=== PATIENT | female | born 1965 | race Caucasian/White ===

== ENCOUNTER 2022-06-22 15:15 | Outpatient (RCR) | payer BC, SELFPAY ==
--- NOTE | 2022-04-26 16:11 | PT.OPEX ---
Please sign PT evaluation completed on 04/26/22. Thank you. PT [place] [facility] Eval PT [facility] Outpatient Eval Start: 04/26/22 12:34 Freq: Status: Active Protocol: Document 04/26/22 12:34 TLQ (Rec: 04/26/22 16:02 TLQ [id number]) E-signed By Rachael Desir DPT Physical Therapy Outpatient Evaluation Insurance Information Recert Due Date 06/25/22 Insurance Name Medicaid,Blue [employer] Medical Diagnosis Adhesive capsulitis of right shoulder Treating Diagnosis Pain in R shoulder (M25.511) Stiffness of shoulder (M25.61) Muscle weakness (M62.81) Referring MD Gates Subjective Subjective Patient states she's had R shoulder pain for the past 2 months. Initially just felt tight but not has a hard time moving it when she first wakes up, loosens up throughout the morning but still doesn't get all her motion. Takes ibuprofen to help with the pain. Reports the pain in her shoulder wakes her up about 5- 6x per night, likes to sleep on her back. She has tried different positions with pillows for sleeping but hasn' t seemed to help. States she dreads going to sleep because of how intense her pain is when she wakes up. Describes pain as an intense ache, gets more intense throughout her range of motion. Has difficulty reaching up to get a coffee cup, anything about shoulder height is difficult. Saw Dr. Gates, took some x- rays and thought patient had frozen shoulder, patient states joint lags. Had a R shoulder repair in 2009. 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 Therapy Limitations/Systems Review Not Limited Objective Range of Motion Shoulder: flexion - L 164, R 130 painful throughout ROM but more with controlled extension abduction - L 170, R 145 painful and slow active motion past 80 degrees internal rotation - L 81, R 60 painful with with active ER to return to neutral external rotation - L 68, R 45 painful Strength Shoulder: flexion - L 5/5, R 4/5 painful abduction - L 5/5, R 3+/5 painful adduction - L 5/5, R 5/5 internal rotation - L 5/5, R 3 +/5 painful external rotation - L 5/5, R 4 /5 elevation - 5/5 Elbow: flexion - L 5/5, R 4/5 painful extension - L 5/5, R 5/5 Palpation TTP - R shoulder: proximal bicep muscle belly, proximal bicep tendon, pectorals, suprspinatus, infraspinatus, levator scapula Scapular - normal mobility GH mobility - hypomobile posterior glide, positive patient response Posture forward head/rounded shoulders L shoulder slightly elevated compared to R Other/Pertinent Objective Real-Enrike - negative on L, positive on R for pain sulcus sign on R Functional Test Performed & Score SPADI pain score (04/26/22) - 30/50 ( 60% impaired) disability score (04/26/22) - 45/80 (56% impaired) total score (04/26/22) - 75/130 FRANKLIN - 13 points Assessment Assessment/Impression Patient is a 56 year old female who presents to physical therapy with R shoulder pain of 2 months duration. Over the past few months she has experienced decreased range of motion and increased pain in her R shoulder. Pain is insidious in nature and limits the patient 's quality of sleep, ability to perform self cares such as washing her hair, and her ability for reach for dishes placed in a cupboard. Upon examination she was found to be most limited in active R shoulder flexion, abduction, and external rotation. She also presented with weakness upon manual muscle testing and has a positive sulcus sign. She was tender with palpation of R shoulder RC and pectoral muscles. Due to severity of patients symptoms and the impact they are having on her ability to participate in daily cares and chores, she will benefit from skilled PT intervention to reduce pain, improve shoulder AROM and increase shoulder strength. Primary Functional Limitations R shoulder pain, decreased sleep quality, pain with overhead reaching, pain with washing hair, decreased R shoulder AROM, muscle weakness Plan of Care Rehabilitation Potential Good Physical Therapy Goals goals created on 04/26/22: STG - Patient will R shoulder AROM by 10 degrees for shoulder flexion, abduction, and external rotation to be able to wash her hair with decreased difficulty in 5 weeks. STG - Patient will decrease subjective report of pain from 8/10 to 5/10 to decrease sleep disruption to <4x/night in 5 weeks. LTG - Patient will improve R shoulder AROM to be within functional limits for improved mobility in self-cares and reaching in 10 weeks. 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 LTG - Patient will adhere to HEP to manage symptoms IND at home in 10 weeks. Treatment Plan/Direct Interventions Electrical Stimulation,Joint Mobilization,Manual Therapy, Neuromuscular Re-ed, Therapeutic Activities, Therapeutic Exercises Frequency/Duration 1x/week for 8-10 weeks Patient Will Be Discharged From Therapy Completion of LTG(s),Skills Plateau,Independent w/HEP, Independently Progressing Evaluation Billing Untimed Code Treatment Minutes 35 Complexity Low Certification Information Initial Certification Date 04/26/22 Ending Certification Date 06/25/22 Provider Signature Shows Agreement With POC & Medical Necessity Physician Comment/Change Comment or Changes Physician NPI Number #
== END 2022-08-12 10:04 | disposition home or self-care (01) ==
PROVIDERS: PCP Physician Assistant Medical; Visit Provider Orthopaedic Surgery Sports Medicine
DX: M75.01 Adhesive capsulitis of right shoulder (principal); Z51.89 Encounter for other specified aftercare
CPT/HCPCS: 97110; 97140; 97161

== ENCOUNTER 2022-07-21 19:24 | Emergency (ER) | payer BC, SELFPAY ==
[2022-07-21 19:58] VITALS: BP 146/79; PULSE 59; RESP 20; TEMP 36.3; O2SAT 94; BMI 34.9
--- NOTE | 2022-07-21 20:15 | ED.GENADULT ---
HPI - General Adult General Time Seen by Provider: 20:20 Date Seen: 07/21/22 Chief complaint: Cough Stated complaint: Lung Pain,Severe Cough Time Seen by Provider: 07/21/22 20:07 Source: patient, family, RN notes reviewed and old records reviewed Mode of arrival: ambulatory Limitations: no limitations History of Present Illness HPI narrative: 56-year-old female who comes in today with her partner with cough and burning in her lungs. This been going on for couple of days. Multiple family members at home sick with similar symptoms. She denies fever chills, does have body aches and headache. Sinus congestion and sore throat as well. Has been taking NyQuil and ibuprofen for this. No orthopnea, no lower extremity swelling, no chest pain, no nausea, vomiting, or diarrhea. Related Data Home Medications Medication Instructions Recorded Confirmed duloxetine 30 mg capsule,delayed 90 mg PO DAILY 02/21/22 03/29/22 release estradiol 1 mg tablet 1 mg PO DAILY 02/21/22 03/29/22 levothyroxine 150 mcg tablet 150 mcg PO DAILY 02/21/22 03/29/22 lithium carbonate 300 mg tablet 300 mg PO BID 02/21/22 03/29/22 omeprazole 20 mg capsule,delayed 20 mg PO QDAY 02/21/22 03/29/22 release progesterone micronized 100 mg 100 mg PO DAILY 02/21/22 03/29/22 capsule propranolol 10 mg tablet 20 mg PO BID 02/21/22 03/29/22 trazodone 50 mg tablet 50 mg PO .Bedtime 02/21/22 03/29/22 Previous Rx's Medication Instructions Recorded nicotine (polacrilex) 2 mg buccal 2 mg buccal Q4H PRN nicotine 02/21/22 lozenge (Nicorette) cravings #108 ea nicotine 14 mg/24 hr daily 1 patch transdermal Q24H #30 ea 02/21/22 transdermal patch buprenorphine 8 mg-naloxone 2 mg 2 tab sublingual DAILY #56 tabs 07/11/22 sublingual tablet cefpodoxime 200 mg tablet 200 mg PO BID #14 tabs 07/21/22 Allergies Allergy/AdvReac Type Severity Reaction Status Date / Time latex Allergy Unknown Rash Verified 03/29/22 15:02 peanuts Allergy Severe filberts-throat Uncoded 03/29/22 15:02 itchy/scratchy Penicillin Allergy Unknown Rash Uncoded 03/29/22 15:02 Review of Systems Status of ROS: Reports: 10 or more systems reviewed and unremarkable except as noted in History and below [facility] Medical History (Updated 07/21/22 @ 21:07 by Eric Lance MD) Anxiety Arthritis Neck pain Sleep apnea Thyroid disease Surgical History History of arthroscopy of left knee History of arthroscopy of right shoulder History of total left knee replacement (~2011) Hx of cholecystectomy Social History (Updated 03/29/22 @ 15:01 by Dinorah Coto CMA) Smoking Status: Current every day smoker Do you use any of these nicotine containing products: None Second hand tobacco smoke exposure: No How often do you have a drink containing alcohol: never AUDIT-C Alcohol total score: 0 Non-prescribed substance use: denies use service: No Exam Narrative: Exam Narrative: General: Well-developed and well-nourished, no acute distress Head: Atraumatic and normocephalic Eyes: Pupils are equal reactive, extraocular motions intact, conjunctiva clear ENT: External nose and ears are normal, posterior pharynx without erythema or exudate Neck: No midline cervical tenderness, full spontaneous range of motion the neck, trachea midline, no adenopathy Heart: Regular rate and rhythm no murmurs or thrills Lungs: Clear to auscultation bilaterally without wheezes or crackles Abdomen: Soft, nontender, nondistended with active bowel sounds Musculoskeletal: No tenderness, deformity, or edema Neurologic: Awake, alert, and oriented x3, no gross focal neurologic deficits, cranial nerves intact as tested Psych: Mood and affect are appropriate Skin: No rashes Const: Vital Signs, click to edit/add: Vital Signs - 24 hr 07/21/22 19:58 Temperature 97.4 F L Pulse Rate [Pulse Oximeter] 59 L Respiratory Rate 20 Blood Pressure [Ri ght Upper Arm] 146/79 H Pulse Oximetry 94 Oxygen Delivery Me thod Room Air Course Course Hospital Course: Patient seen examined, prior records are reviewed. Differential diagnosis includes but not limited to upper respiratory infection, influenza, COVID, pneumonia, COPD, asthma, heart failure. Patient presents with cough, sinus congestion, sore throat body aches, and headache. Multiple family members with similar symptoms, infectious etiology such as upper respiratory infection, COVID, or influenza most likely and nasal swabs are ordered. Pneumonia possible although lungs are clear and patient has a constellation of other upper respiratory symptoms as well, chest x-ray is ordered. DuoNeb ordered and will continue to monitor patient in the department. No chest pain to suggest acute coronary syndrome, no lower extremity swelling and lungs are clear so pulmonary edema or congestive heart failure unlikely. Reevaluation(s) Reevaluation #1: Chest x-ray demonstrated right lower lobe infiltrate consistent with pneumonia. Patient will be started on cefpodoxime due to penicillin allergy and Azithromycin and plan to discharge. Time: 21:03 Vital Signs Vital signs: Initial Vital Signs Temperature 97.4 F L 07/21/22 19:58 Temperature Source Temporal Artery Scan 07/21/22 19:58 Pulse Rate 59 L 07/21/22 19:58 Pulse Rhythm 07/21/22 19:58 Respiratory Rate 20 07/21/22 19:58 Blood Pressure 146/79 H 07/21/22 19:58 Blood Pressure Mean 101 07/21/22 19:58 Pulse Oximetry 94 07/21/22 19:58 Oxygen Delivery Method 07/21/22 19:58 Vital Signs Temperature 97.4 F L 07/21/22 19:58 Pulse Rate 59 L 07/21/22 19:58 Respiratory Rate 20 07/21/22 19:58 Blood Pressure 146/79 H 07/21/22 19:58 Pulse Oximetry 94 07/21/22 19:58 Oxygen Delivery Method 07/21/22 19:58 Temperature 97.4 F L 07/21/22 19:58 Pulse Rate 59 L 07/21/22 19:58 Respiratory Rate 20 07/21/22 19:58 Blood Pressure 146/79 H 07/21/22 19:58 Pulse Oximetry 94 07/21/22 19:58 Oxygen Delivery Method 07/21/22 19:58 Medical Decision Making Medical Records Medical records reviewed: Yes I reviewed the patient's medical records Lab Data Lab results reviewed: Yes I reviewed the patient's lab results Labs: Lab Results 07/21/22 Range/Units 20:24 SARS-CoV-2 (PCR) Negative SARS-CoV-2 (Negative) Influenza Type A (PCR) Negative PCR FLU A (Negative) Influenza Type B (PCR) Negative PCR FLU B (Negative) RSV (PCR) POSITIVE PCR RSV A (Negative) Imaging Data Chest x-ray: Attestation: I have reviewed the pertinent imaging results. My impression: Question right lower lobe infiltrate Discharge Plan Discharge Clinical Impression: Community acquired pneumonia Patient Disposition: Home, Self-Care Condition: Stable Instructions: Community Acquired Pneumonia (DC) Additional Instructions: Tylenol and ibuprofen for fever and body aches. Take antibiotics as prescribed. Make sure regarding plenty of fluids and plenty of rest. Started azithromycin tonight and cefpodoxime tomorrow. Prescriptions: New cefpodoxime 200 mg tablet 200 mg PO BID Qty: 14 0RF Rx Instructions: must administer with a meal/food No Action duloxetine 30 mg capsule,delayed release(DR/EC) 90 mg PO DAILY progesterone micronized 100 mg capsule 100 mg PO DAILY lithium carbonate 300 mg tablet 300 mg PO BID omeprazole 20 mg capsule,delayed release(DR/EC) 20 mg PO QDAY levothyroxine 150 mcg tablet 150 mcg PO DAILY estradiol 1 mg tablet 1 mg PO DAILY propranolol 10 mg tablet 20 mg PO BID trazodone 50 mg tablet 50 mg PO .Bedtime nicotine 14 mg/24 hr patch 24 hour 1 patch transdermal Q24H Qty: 30 2RF nicotine (polacrilex) [Nicorette] 2 mg lozenge 2 mg buccal Q4H PRN (Reason: nicotine cravings) Qty: 108 2RF buprenorphine-naloxone 8-2 mg tablet, sublingual 2 tab sublingual DAILY Qty: 56 1RF Follow Up/Referrals: Stephy Stover PA-C [Primary Care Provider] - Stand Alone Forms: [employer] Info Instructions
--- NOTE | 2022-07-21 20:19 | CRLHL7_ITS ---
For Patients: As a result of the Century Cures Act, medical imaging exams and procedure reports are released immediately into your electronic medical record. You may view this report before your referring provider. If you have questions, please contact your health care provider. HISTORY: Cough. TECHNIQUE: Portable frontal view the chest. COMPARISON: Chest x-ray 03/25/2019. FINDINGS: Hazy opacity in the lower right lung with prominent adjacent interstitium. No consolidation on the left. No pleural effusion or pneumothorax. Pulmonary vasculature and cardiomediastinal silhouette are unremarkable. IMPRESSION: Hazy opacity lower right lung, favor pneumonia. Imaging follow-up is recommended to document resolution. Dictated by Polo Hargrove MD @ 07/21/2022 8:57:47 PM (Electronically Signed)
[2022-07-21] MEDS: IPRAT-ALBUT 0.5-2.5 MG/3 ML NEB 1 NEB IH (20:43)
[2022-07-21 21:05] LABS: PCR FLU A Negative PCR FLU A (Negative); PCR FLU B Negative PCR FLU B (Negative); PCR RSV POSITIVE PCR RSV (Negative)
[2022-07-21 21:06] LABS: SARS PCR* Negative SARS-CoV-2 (Negative)
[2022-07-21 21:19] VITALS: BP 132/69; PULSE 62; RESP 18; TEMP 36.6
--- NOTE | 2022-07-22 12:46 | ED.NURSE ---
patient called and wants a different antibiotic due to needing a prior authorization. Changed the medication to Ceftin 500mg orally BID x 7 days called into [facility].
== END 2022-07-21 21:20 | disposition home or self-care (01) ==
PROVIDERS: Emergency Provider Family Medicine; PCP Physician Assistant Medical
DX: J18.9 Pneumonia, unspecified organism (principal)
CPT/HCPCS: 71045; 87502; 87634; 87635; 94640; 99284

== ENCOUNTER 2022-11-17 19:09 | Emergency (ER) | payer BC, SELFPAY ==
[2022-11-17 19:16] VITALS: BP 157/90; PULSE 62; RESP 16; TEMP 36.1; O2SAT 99
--- NOTE | 2022-11-17 20:23 | ED.GENADULT ---
HPI - General Adult General Date Seen: 11/17/22 Chief complaint: Weakness Stated complaint: tremors, fatigue (LI raised a month ago) Time Seen by Provider: 11/17/22 19:11 Source: patient and family Mode of arrival: ambulatory Limitations: no limitations History of Present Illness HPI narrative: Patient is a very nice 56-year-old female who takes lithium was recently increased 4 weeks ago, from 600 mg once daily to 900 mg once daily, in the last 3 weeks she has noted that she has been very fatigued, a little bit ataxic, and heads increase tremor in her hands bilaterally, she denies any vomiting, any diarrhea, but has had a little bit a nausea associated with this. Denies any falls or injury, fevers chills or sweats, abdominal pain, cough sore throat, or rashes. None of her other medications have been increased, but she was placed on Atarax 50 mg once daily when she started the lithium increased dosage. She had been on the lithium before this for approximately 4 months. She is accompanied here by friend. She called her psychiatrist Dr. Wesley at [facility], she was directed to the emergency room to check for lithium toxicity. She does have a history of hypothyroidism Treatments prior to arrival: none Related Data Home Medications Medication Instructions Recorded Confirmed duloxetine 30 mg capsule,delayed 90 mg PO DAILY 02/21/22 10/31/22 release estradiol 1 mg tablet 1 mg PO DAILY 02/21/22 10/31/22 lithium carbonate 300 mg tablet 300 mg PO BID 02/21/22 10/31/22 omeprazole 20 mg capsule,delayed 20 mg PO QDAY 02/21/22 10/31/22 release progesterone micronized 100 mg 100 mg PO DAILY 02/21/22 10/31/22 capsule propranolol 10 mg tablet 20 mg PO BID 02/21/22 10/31/22 trazodone 50 mg tablet 50 mg PO .Bedtime 02/21/22 10/31/22 levothyroxine 175 mcg tablet 175 mcg PO QDAY 09/05/22 10/31/22 hydroxyzine HCl 25 mg tablet 25 mg PO BID PRN 10/31/22 10/31/22 Previous Rx's Medication Instructions Recorded nicotine (polacrilex) 2 mg buccal 2 mg buccal Q4H PRN nicotine 02/21/22 lozenge (Nicorette) cravings #108 ea nicotine 14 mg/24 hr daily 1 patch transdermal Q24H #30 ea 02/21/22 transdermal patch cefpodoxime 200 mg tablet 200 mg PO BID #14 tabs 07/21/22 buprenorphine 8 mg-naloxone 2 mg 2 tab sublingual DAILY #56 tabs 10/31/22 sublingual tablet Allergies Allergy/AdvReac Type Severity Reaction Status Date / Time latex Allergy Unknown Rash Verified 10/31/22 09:06 peanuts Allergy Severe filberts-throat Uncoded 10/31/22 09:06 itchy/scratchy Penicillin Allergy Unknown Rash Uncoded 10/31/22 09:06 Review of Systems Status of ROS: Reports: 10 or more systems reviewed and unremarkable except as noted in History and below [facility] Medical History (Updated 11/17/22 @ 23:01 by Felix Edmond MD) Anxiety ?F41.9 - Anxiety disorder, unspecified (ICD-10) Arthritis ?M19.90 - Unspecified osteoarthritis, unspecified site (ICD-10) Neck pain ?M54.2 - Cervicalgia (ICD-10) Sleep apnea ?G47.30 - Sleep apnea, unspecified (ICD-10) Thyroid disease ?E07.9 - Disorder of thyroid, unspecified (ICD-10) Surgical History History of arthroscopy of left knee History of arthroscopy of right shoulder History of total left knee replacement (~2011) Hx of cholecystectomy Social History (Updated 03/29/22 @ 15:01 by Dinorah Coto ~ [facility], [facility]) Smoking Status: Former smoker Do you use any of these nicotine containing products: None Second hand tobacco smoke exposure: No How often do you have a drink containing alcohol: never AUDIT-C Alcohol total score: 0 Non-prescribed substance use: denies use service: No Exam Narrative: Exam Narrative: On examination she is speaking to me normally, little bit slow to respond but otherwise normal, normal speech, pupils are equal round reactive to light she has 2 beats of nystagmus horizontally bilaterally, her TMs are normal oropharynx is normal, with normal hydration status her neck is supple, her thyroid is normal midline not and tender and not enlarged. There is no lymphadenopathy anterior posterior chains, no meningismus, and cranial nerves 3-12 are otherwise normal, chest is good air entry bilaterally with no wheezing crackles noted heart sounds are normal, skin reveals no petechiae or rashes, abdomen is soft and obese there is no guarding no organomegaly bowel sounds are normal, peripheral pulses are all normal, she has a very fine tremor noted of her hands bilaterally, I do not see 1 of her feet. Finger-nose testing was normal for me in the room bilaterally, she is able to walk normal, and tandem walking, was normal with no significant ataxic gait. Const: Vital Signs, click to edit/add: Vital Signs - 24 hr 11/17/22 19:16 11/17/22 21:47 Temperature 97.0 F L 97.0 F L Pulse Rate [Left P ulse Oximeter] 62 67 Respiratory Rate 16 16 Blood Pressure [Ri ght Upper Arm] 157/90 H 148/68 H Pulse Oximetry 99 96 Oxygen Delivery Me thod Room Air Room Air Documenting provider has reviewed patient's vital signs: yes Course Course Hospital Course: Discussed with her that we will do lithium level this has to be sent out to [facility] which turnaround about 2 hours we will start an IV I will check her labs including kidney function, basic metabolic profile TSH also. Do an EKG. We will give her fluids well are waiting, Reevaluation(s) Reevaluation #1: [place] I return level at 1.0 which is in the normal range this is reassuring and I think we can discharge the patient home with follow-up with psychiatry and primary care, I do not have any answers for her tonight but I suspect that may be due to her medications. Time: 23:04 Vital Signs Vital signs: Initial Vital Signs Temperature 97.0 F L 11/17/22 19:16 Temperature Source Temporal Artery Scan 11/17/22 19:16 Pulse Rate 62 11/17/22 19:16 Pulse Rhythm Regular 11/17/22 19:16 Respiratory Rate 16 11/17/22 19:16 Blood Pressure 157/90 H 11/17/22 19:16 Blood Pressure Mean 112 11/17/22 19:16 Blood Pressure Position Sitting 11/17/22 19:16 Pulse Oximetry 99 11/17/22 19:16 Oxygen Delivery Method Room Air 11/17/22 19:16 Vital Signs Temperature 97.0 F L 11/17/22 19:16 Pulse Rate 62 11/17/22 19:16 Respiratory Rate 16 11/17/22 19:16 Blood Pressure 157/90 H 11/17/22 19:16 Pulse Oximetry 99 11/17/22 19:16 Oxygen Delivery Method Room Air 11/17/22 19:16 Temperature 97.0 F L 11/17/22 21:47 Pulse Rate 67 11/17/22 21:47 Respiratory Rate 16 11/17/22 21:47 Blood Pressure 148/68 H 11/17/22 21:47 Pulse Oximetry 96 11/17/22 21:47 Oxygen Delivery Method Room Air 11/17/22 21:47 Medical Decision Making MDM Narrative Medical decision making narrative: Life-threatening differential diagnosis considered include stroke, coronary artery disease, pneumonia, and heart failure. Other differential diagnosis include but are not limited to electrolyte imbalances, anemia, medication reactions, and urinary tract infection Lab Data Lab results reviewed: Yes I reviewed the patient's lab results Labs: Lab Results 11/17/22 Range/Units 20:00 WBC 8.04 (4.50-11.00) K/uL RBC 3.63 L (4.00-5.20) m/uL Hgb 11.0 L (12.0-16.0) gm/dL Hct 33.0 (33.0-51.0) % MCV 91 (80-100) fL MCH 30 (26-34) pg MCHC 33 (32-36) gm/dL RDW Coeff of [place] 11.4 L (11.5-15.5) % Plt Count 318 (140-440) K/uL Neut % (Auto) 52.5 (42.0-72.0) % Lymph % (Auto) 33.1 (20-44) % [place] % (Auto) 9.8 (0.0-11.0) % Eos % (Auto) 4.2 (0.0-7.0) % Baso % (Auto) 0.2 (0.0-3.0) % Neut # (Auto) 4.21 (1.7-7.0) K/uL Lymph # (Auto) 2.66 (0.90-2.90) K/uL [place] # (Auto) 0.80 (0.00-0.90) K/UL Eos # (Auto) 0.34 (0.00-0.50) K/uL Baso # (Auto) 0.02 (0.00-0.30) K/uL Sodium 136 (135-149) mmol/L Potassium 4.3 (3.6-5.1) mmol/L Chloride 105 (96-114) mmol/L Carbon Dioxide 27 (20-32) mmol/L BUN 14 (7-30) mg/dL Creatinine 0.7 (0.5-1.5) mg/dL Estimated GFR 101 ml/min Glucose 95 (60-115) mg/dL Calcium 9.1 (8.4-10.6) mg/dL C-Reactive Protein 0.5 (0.5-1.0) mg/dL TSH 2.490 (0.270-4.20) uIU/mL [place] I Cancelled SARS-CoV-2 (PCR) Negative SARS-CoV-2 (Negative) Influenza Type A (PCR) Negative PCR FLU A (Negative) Influenza Type B (PCR) Negative PCR FLU B (Negative) RSV (PCR) Negative PCR RSV (Negative) ECG Data Attestation: I personally reviewed and interpreted this ECG as follows: Prior ECG tracings: available for review Interpretation: EKG shows mild sinus bradycardia with ventricular to 58, QT is slightly prolonged at 4:58 a.m., MO is normal a and QRS are normal, compared to October of 2018 T-waves are less pronounced in the current EKG, otherwise the same. Discharge Plan Discharge Clinical Impression: Drug side effects Patient Disposition: Home w/ Parent or Adult Condition: Stable Instructions: Adverse Drug Reaction (ED) Additional Instructions: Home rest follow-up with primary care and Psychiatry, do not see an emergent ER condition here tonight, I am happy that her lithium level was not elevated, and the remainder of her tests were all within normal range. Prescriptions: No Action duloxetine 30 mg capsule,delayed release(DR/EC) 90 mg PO DAILY progesterone micronized 100 mg capsule 100 mg PO DAILY lithium carbonate 300 mg tablet 300 mg PO BID omeprazole 20 mg capsule,delayed release(DR/EC) 20 mg PO QDAY estradiol 1 mg tablet 1 mg PO DAILY propranolol 10 mg tablet 20 mg PO BID trazodone 50 mg tablet 50 mg PO .Bedtime nicotine 14 mg/24 hr patch 24 hour 1 patch transdermal Q24H Qty: 30 2RF nicotine (polacrilex) [Nicorette] 2 mg lozenge 2 mg buccal Q4H PRN (Reason: nicotine cravings) Qty: 108 2RF levothyroxine 175 mcg tablet 175 mcg PO QDAY hydroxyzine HCl 25 mg tablet 25 mg PO BID PRN buprenorphine-naloxone 8-2 mg tablet, sublingual 2 tab sublingual DAILY Qty: 56 1RF cefpodoxime 200 mg tablet 200 mg PO BID Qty: 14 0RF Rx Instructions: must administer with a meal/food Follow Up/Referrals: Stephy Stover PASupriyaC [Primary Care Provider] - Stand Alone [facility]
[2022-11-17 20:27] LABS: Basophils Absolute Auto 0.02 K/uL (0.00-0.30); Basophils Percent Auto 0.2 % (0.0-3.0); Eosinophils Absolute Auto 0.34 K/uL (0.00-0.50); Eosinophils Percent Auto 4.2 % (0.0-7.0); Immature Granulocytes Abs Auto 0.02 K/uL (0.00-0.30); Immature Granulocytes Pct Auto 0.2 %; Lymphocytes Absolute Auto 2.66 K/uL (0.90-2.90); Lymphocytes Percent Auto 33.1 % (20-44); Mean Corpuscular HGB Conc 33 gm/dL (32-36); Mean Corpuscular Hemoglobin 30 pg (26-34); Mean Corpuscular Volume 91 fL (80-100); Monocytes Percent Auto 9.8 % (0.0-11.0); Neutrophils Absolute Auto 4.21 K/uL (1.7-7.0); Neutrophils Percent Auto 52.5 % (42.0-72.0); Platelet Count* 318 K/uL (140-440); RDW Coefficient of Variation % 11.4 % (11.5-15.5); Red Blood Count 3.63 m/uL (4.00-5.20); White Blood Count* 8.04 K/uL (4.50-11.00)
[2022-11-17] MEDS: 0.9 % SODIUM CHLORIDE 1000 ml 1,000 ML IV ×2 (20:27→21:53)
[2022-11-17 20:36] LABS: Chloride* 105 mmol/L (96-114); Potassium* 4.3 mmol/L (3.6-5.1); Sodium* 136 mmol/L (135-149)
[2022-11-17 20:39] LABS: Creatinine* 0.7 mg/dL (0.5-1.5); Estimated Glomerular Filt Rate 101 ml/min
[2022-11-17 20:40] LABS: Blood Urea Nitrogen* 14 mg/dL (7-30); Calcium* 9.1 mg/dL (8.4-10.6); Carbon Dioxide* 27 mmol/L (20-32); Glucose* 95 mg/dL (60-115); Slide Review Reflex No
[2022-11-17 20:42] LABS: C Reactive Protein* 0.5 mg/dL (0.5-1.0)
[2022-11-17 20:52] LABS: PCR FLU A Negative PCR FLU A (Negative); PCR FLU B Negative PCR FLU B (Negative); PCR RSV Negative PCR RSV (Negative)
[2022-11-17 20:53] LABS: SARS PCR* Negative SARS-CoV-2 (Negative)
[2022-11-17 21:47] VITALS: BP 148/68; PULSE 67; RESP 16; TEMP 36.1; O2SAT 96
== END 2022-11-17 23:08 | disposition home or self-care (01) ==
PROVIDERS: Emergency Provider Family Medicine; PCP Physician Assistant Medical
DX: R53.83 Other fatigue (principal); T43.595A Adverse effect of other antipsychotics and neuroleptics, initial encounter
CPT/HCPCS: 36415; 80048; 80178; 84443; 85025; 86140; 87631; 93005; 99284; J7030

== ENCOUNTER 2024-12-16 07:12 | Day surgery (SDC) | payer OTHER, SELFPAY ==
[2024-12-16] VITALS (7 sets, daily range): BP systolic 134–160; BP diastolic 69–90; PULSE 54–64; RESP 16; TEMP 36.1–36.6; O2SAT 94–97; BMI 35.2
[2024-12-16] MEDS: LACTATED RINGERS 1000 ML 1,000 ML 100 ML IV (07:20)
[2024-12-16] MEDS: fentaNYL 100 MCG/2 ML inj IVP (08:11)
[2024-12-16] MEDS: SODIUM CHLORIDE 0.9 % (FLUSH) 10 ML SYRINGE IVF (08:11)
[2024-12-16] MEDS: MIDAZOLAM HCL 1 MG/ML inj IVP (08:11)
[2024-12-16] MEDS: CEFAZOLIN 1 GM inj IVP (08:36)
[2024-12-16] MEDS: BUPIVACAINE 0.25% 30 ML INJECTION (08:45)
--- NOTE | 2024-12-16 10:56 | W.ANESCHARGE ---
Anesthesia Charges Start Date/Time Anesthesia Start Date: 12/16/24 Anesthesia Start Time: 08:27 Stop Date/Time Anesthesia Stop Date: 12/16/24 Anesthesia Stop Time: 10:54 Coding CPT Codes CPT Codes: ANESTH LOWER LEG BONE SURG - 37261 ([id number]) P2 - PATIENT W/MILD SYST DISEASE, QZ - BENEFITS DIRECTOR SVC W/O PHARMACIST IN CHARGE BY
--- NOTE | 2024-12-16 10:56 | P.ANES_ITS ---
Anesthesia Charges Start Date/Time Anesthesia Start Date: 12/16/24 Anesthesia Start Time: 08:27 Stop Date/Time Anesthesia Stop Date: 12/16/24 Anesthesia Stop Time: 10:54 Coding CPT Codes CPT Codes: ANESTH LOWER LEG BONE SURG - 10189 ([id number]) P2 - PATIENT W/MILD SYST DISEASE, QZ - METAL WINDOW SCREEN ASSEMBLER SVC W/O CHEMIST ASSISTANT BY
--- NOTE | 2024-12-16 11:04 | W.PODPROC_ITS ---
Date of Procedure: 12/16/24 Surgeon: Adam Morse DPM Pre-op Diagnosis: 1. Hallux valgus and bunion right 2. Overlapping 2nd toe right 3. Metatarsalgia 2nd right 4. Hammertoe 2nd right 5. Tailor's bunion right Post-op Diagnosis: 1. Hallux valgus and bunion right 2. Overlapping 2nd toe right 3. Metatarsalgia 2nd right 4. Hammertoe 2nd right 5. Tailor's bunion right Type of Procedure: 1. First MPJ fusion right 2. Second metatarsal osteotomy right 3. Second digit hammertoe correction right 4. Tailor's bunion correction by osteotomy right Indications: Patient had longstanding pain to forefoot deformity. She has elected surgical intervention. I reviewed the procedure, recovery, expectation potential complications. These include but are not limited to: Poor wound healing, infection, under correction, over correction, malunion, delayed union, nonunion, nerve injury, hardware irritation or failure, deep venous thrombosis, pulmonary embolism, complex regional pain syndrome and possible . She understands risks written consent was obtained. Site marked. She has pain clinic patient has pain plan in place. Procedure Description: Patient was a preoperative popliteal and adductor block by Anesthesia. She was brought the operating room placed in supine position on operating table. IV sedation was initiated and an additional 30 mL of 0.25% Marcaine plain injected into the right foot. She was then prepped and draped in sterile fashion. Standard time-out protocol followed. The right foot was exsanguinated the tourniquet inflated. Linear incisions made over the 1st metatarsophalangeal joint. Incision was carried down through skin subcutaneous tissues. Joint capsule and periosteum reflected away from the metatarsophalangeal joint. Guide pin was placed in the 1st metatarsal head and an 18 mm Reamer was used to remove the cartilage and subchondral bone. Guide pin was removed and placed in the base of the proximal phalanx and corresponding 18 mm Reamer was used to remove the cartilage and subchondral bone. Area was irrigated normal sterile saline. Opposing fusion surfaces were fenestrated with a K-wire. Simulating weight- bearing the hallux was placed in a appropriate position and temporarily pinned with K-wire. 3.0 mm cannulated headless screw was then inserted from distal medial to proximal lateral with excellent compression noted across the fusion site. Dorsal 6 hole plate was then applied with 3.0 mm locking screws x3 placed distally and 2 placed proximally. Additional 3.0 mm nonlocking screw was placed proximal. Fusion site was remodeled with a rotary bur. C-arm confirmed excellent position. Joint capsule was then repaired with 3-0 Vicryl, subcutaneous tissues reapproximated 4-0 Monocryl and skin closed with 4-0 Prolene. Linear incisions made over the 2nd metatarsophalangeal joint extending out over the 2nd toe and PIPJ. Incision was carried down through skin subcutaneous tissues. Transverse incision was made through the extensor tendons at the level of the MPJ. The joint capsule was then released on the dorsal medial and lateral aspect. There was no perceivable plantar plate tear. Sagittal saw was then used to perform a Rebekah osteotomy. Capital fragment was transposed proximal and medial and the fixated with 2.0 mm twist off screws x2. Small amount of dorsal overhang was removed with a rongeur. 2nd toe aligned much better. Transverse incision was made through the extensor tendon and joint capsule at the PIPJ. The medial and lateral collateral ligaments were released. Oscillating saw was used to resect the head of the proximal phalanx and the base of the middle phalanx. 0.045 smooth K-wire was introduced into the base of the middle phalanx driven out through the tip of the toe. Fusion site was held tightly together and the K-wire retrogradely drilled back into the proximal phalanx. C-arm confirmed excellent position. The pin was bent cut and capped. Area was thoroughly irrigated normal sterile saline. Redundant extensor tendon was excised and tendon repaired with 4-0 Vicryl. With the 2nd toe held in a slightly plantar and lateral the plantar lateral joint capsule was tightened down with 3-0 Vicryl. This held the 2nd proximal phalangeal base and better alignment. Subcutaneous tissues reapproximated with 4-0 Monocryl and skin closed with 4-0 Prolene. Linear incision made over the dorsal lateral aspect of the 5th metatarsal distal shaft and head. The incision was carried down through skin subcutaneous tissues. Linear capsular incision was made these tissues reflected away from the head of the 5th metatarsal and its distal shaft. Sagittal saw used to resect the prominent bony spurring off the 5th metatarsal head. Osteotomy guide pin placed in the 5th metatarsal head. Long plantar arm osteotomy then performed. Guide pin removed and the capital fragment transposed medially. Once optimal correction was achieved osteotomy was fixated with two 2.4 mm cannulated screws. C-arm confirmed position and correction. Fifth metatarsal head remodeled with a rotary bur. Wound was thoroughly irrigated normal sterile saline. Joint capsule was repaired with 4-0 Vicryl. Subcutaneous tissues reapproximated 4-0 Monocryl skin closed with 4-0 Prolene. Sterile dressing was then applied. Tourniquet was released normal capillary fill time returned all digits. She was placed in a well-padded cam boot. She was transferred from OR to PACU vital signs stable and vascular status intact. She is given both verbal and written postoperative instructions. She is heel weight-bearing in the cam boot. She is given oxycodone for pain. She will follow-up in 3 days. Anesthesia: MAC, regional and local Hemostasis: ankle Estimated blood loss (mL): 2 Provider Operated C-arm: C-arm fluoroscopy operated by Adam Morse DPM for right foot surgical case. Nineteen C-arm spot images were obtained. Fluoroscopy time was 0.13. Total does 0.040mGy. Implants: Arthrex 6 hole 1st MPJ fusion plate, 3.0 mm locking screws times 5, 3.0 mm nonlocking screw x1, 3.0 mm cannulated headless screw x1, 2.0 mm twist off screws x2, 0.045 smooth K-wire x1, 2.0 mm cannulated screws x2. Specimens: none sent Disposition: same day
--- NOTE | 2024-12-16 11:19 | W.PM.NB ---
Nerve Block Nerve Block Time Seen by Provider: 08:19 Date Seen: 12/16/24 Type of block requested by surgeon for post-operative analgesia: popliteal Side: right Time out performed: Yes Verification of patient name: Yes Verification of date of : Yes Site marking: site marked Name of person performing procedure: Hugh Continuous monitoring Was continuous monitoring of O2 sat, B/P, cardiac cath lab radiology technologist, recorded every 15 minutes?: Yes Procedure Checklist: sterile prep, needles and gloves Ultrasound guided. Images saved: Yes Medications given in 5ml increments after negative aspiration: Marcaine %: 0.25 mL: 7 and Exparel mL: 8 Needle gauge: 22 Patient tolerated procedure well: Yes Additional comments: Needle noted adjacent to nerve Block Charges Block Charge (with Pro Fee): Sciatic Nerve Use of Ultrasound Machine for Block: Yes- US Guidance/pain block
--- NOTE | 2024-12-16 11:21 | W.PM.NB ---
Nerve Block Nerve Block Time Seen by Provider: 08:19 Date Seen: 12/16/24 Type of block requested by surgeon for post-operative analgesia: adductor canal Side: right Time out performed: Yes Verification of patient name: Yes Verification of date of : Yes Site marking: site marked Name of person performing procedure: Hugh Continuous monitoring Was continuous monitoring of O2 sat, B/P, corporate development manager, recorded every 15 minutes?: Yes Procedure Checklist: sterile prep, needles and gloves Ultrasound guided. Images saved: Yes Medications given in 5ml increments after negative aspiration: Marcaine %: 0.25 mL: 13 Needle gauge: 20 and Exparel mL: 2 Needle gauge: 22 Patient tolerated procedure well: Yes Block Charges Block Charge (with Pro Fee): Femoral Nerve Use of Ultrasound Machine for Block: Yes- US Guidance/pain block
== END 2024-12-16 12:15 | disposition home or self-care (01) ==
LOC: OR 07:15
PROVIDERS: PCP Physician Assistant Medical; Visit Provider Podiatrist
PROC: (CPT 28740; principal; 2024-12-16 08:30)
DX: M20.11 Hallux valgus (acquired), right foot (principal); M21.621 Bunionette of right foot; M20.41 Other hammer toe(s) (acquired), right foot; M20.5X1 Other deformities of toe(s) (acquired), right foot; M77.41 Metatarsalgia, right foot; G89.18 Other acute postprocedural pain
CPT/HCPCS: 28750; 28285; 28308; 01480; 64445; 64447; 73620; 76000; 76942; C1713; J0665; J0666; J0690; J2250; J2704; J3010; J3490; J7120

== ENCOUNTER 2025-07-19 12:49 | Emergency (ER) | payer OTHER, SELFPAY ==
[2025-07-19] VITALS (12 sets, daily range): BP systolic 182–195; BP diastolic 90–107; PULSE 51–65; RESP 10–18; TEMP 36.4; O2SAT 94–98; BMI 36.8
--- OUTSIDE RECORDS SUMMARY | 2025-07-19 12:52 | XMS_ITS | Clinical Summary ---
Author Organization [facility] Address [address] [place] [address] Care Team Providers Care Terrestrial Ecologist Name Role Phone Stephy Stover Primary Care Provider Sheela Damon ASBESTOS WORKER HELPER Unavailable [phone] Allergies Active Allergy Reactions Criticality Noted Date Comments Amoxicillin-Pot Clavulanate Hives 01/29/20 19 Latex Itching 02/04/2014 Mold Extracts Other - Describe In Comment Field 01/28/2014 Sneezing Medications acetaminophen (TYLENOL EXTRA STRGTH) 500 mg tablet Take 1,000 mg by mouth every 6 hours if needed. Max acetaminophen dose: 4000mg in 24 hrs. Active empty container miscIndications: Anxiety,Depressi on with anxiety,KINGS (generalized anxiety disorder),PTSD (post-traumatic stress disorder) As directed. Medication lock box with multi dosing function for up to 5-6 times/day of medications. 1 Each 07/18/20 17 Active buprenorphine-na loxone, 8 mg-2 mg, (SUBOXONE) 8-[address] 2 tablets under the tongue 2 times daily. 1 04/09/20 21 Active fluticasone (50 mcg per actuation) nasal solution (FLONASE)Indicat ions:Post-nasal drip SHAKE LIQUID AND USE 2 SPRAYS IN EACH NOSTRIL EVERY DAY 48 g 08/28/19 24 Active estradioL 1 mg tabletIndication s:Menopausal symptoms,Hot flashes TAKE 1 TABLET(1 MG) BY MOUTH EVERY DAY 90 Tablet 3 11/26/19 25 Active omeprazole 20 mg Delayed-Release capsuleIndicatio ns:Chronic GERD Take 1 Capsule (20 mg) by mouth two times daily before meals. Use 2nd dose if needed. 180 Capsule 3 11/26/19 25 Active progesterone micronized 100 mg capsuleIndicatio ns:Menopausal symptoms,Hot flashes This product contains peanut oil. Please verify patient allergies.TAKE 1 CAPSULE(100 MG) BY MOUTH AT BEDTIME 90 Capsule 3 11/26/19 25 Active sennosides (Senna) 8.6 mg tabletIndication s:Other constipation Take 2 Tablets (17.2 mg) by mouth two times daily. 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 Take in addition to 88 mcg for total of 188 mcg/day. 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 Take in addition to 100 mcg tablet for total of 188 mcg daily 90 Tablet 3 03/03/20 25 Active busPIRone (BUSPAR) 30 mg tabletIndication s:KINGS (generalized anxiety disorder) Take 1 tablet (30 mg) two to three times daily for anxiety. 270 Tablet 1 06/27/20 25 Active DULoxetine (CYMBALTA) 30 mg Delayed-release capsuleIndicatio ns:KINGS (generalized anxiety disorder),Recurr ent major depressive disorder, in full remission Take 1 capsule by mouth at bedtime. 90 Capsule 1 06/27/20 25 Active DULoxetine (CYMBALTA) 60 mg Delayed-release capsuleIndicatio ns:KINGS (generalized anxiety disorder),Recurr ent major depressive disorder, in full remission Take 1 capsule by mouth daily in the morning. 90 Capsule 1 06/27/20 25 Active hydrOXYzine HCL (ATARAX) 25 mg tabletIndication s:KINGS (generalized anxiety disorder) 25-100 mg every 8 hours as needed for anxiety 60 Tablet 2 06/27/20 25 Active lithium carbonate (LITHONATE) 300 mg capsuleIndicatio ns:Recurrent major depressive disorder, in full remission Take 2 Capsules (600 mg) by mouth at bedtime. 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 60 Tablet 11/26/19 25 025 Discontin ued(*Med complete/ Regimen complete/ Level of care change) polyethylene glycol-electroly te 236-22.74-6.74 -5.86 gram suspensionIndica tions:Encounter for screening colonoscopy Drink 2 liters (half the bottle) the day before colonoscopy and 2 liters (remaining prep) 6 hours prior to colonoscopy appointment. 4000 mL 11/30/19 025 Discontin ued(*Med complete/ Regimen complete/ Level of care change) busPIRone 30 mg tabletIndication s:KINGS (generalized anxiety disorder) Take 1 tablet (30 mg) two to three times daily for anxiety. 270 Tablet 1 12/25/19 025 Discontin ued(Reord er (E-cancel not sent)) DULoxetine 30 mg Delayed-release capsuleIndicatio ns:KINGS (generalized anxiety disorder),Major depressive disorder, recurrent severe without psychotic features (HC) Take 1 capsule by mouth at bedtime. 90 Capsule 1 12/25/19 025 Discontin ued(Reord er (E-cancel not sent)) DULoxetine 60 mg Delayed-release capsuleIndicatio ns:KINGS (generalized anxiety disorder),Major depressive disorder, recurrent severe without psychotic features (HC) Take 1 capsule by mouth daily in the morning. 90 Capsule 1 12/25/19 25 025 Discontin ued(Reord er (E-cancel not sent)) hydrOXYzine HCL 25 mg tabletIndication s:KINGS (generalized anxiety disorder) 25-100 mg every 8 hours as needed for anxiety 60 Tablet 2 12/25/19 25 025 Discontin ued(Reord er (E-cancel not sent)) lithium carbonate 300 mg capsuleIndicatio ns:Major depressive disorder, recurrent severe without psychotic features (HC) Take 2 Capsules (600 mg) by mouth at bedtime. 270 Capsule 1 12/25/19 25 025 Discontin ued(Reord er (E-cancel not sent)) traZODone 100 mg tabletIndication s:Major depressive disorder, recurrent severe without psychotic features (HC),Psychophysi ological insomnia TAKE 1 TABLET BY MOUTH AT BEDTIME 90 Tablet 1 12/25/19 25 025 Discontin ued(Reord er (E-cancel not sent)) Active Problems Problem Noted Date Diagnosed Date Colon polyp 02/03/2025 Overview (02/03/2025): Colonoscopy 01/2025 SSA, repeat in 5 years Pap smear for cervical cancer screening 12/05/19 24 Overview (12/05/2023): 11/2023 NIL/ HPV negative Plan: Pap/ HPV due 11/2028 Severe recurrent major depre ssion without psychotic features 02/06/2018 Controlled substance agreement signed 09/14/2017 Overview (09/14/2017): Signed 09/12/2017 Dr Mariella Gipson Psychiatry Chronic neck pain 07/03/2017 Constipation 07/03/2017 Routine adult health maintenance 03/06/2015 Overview (03/06/2015): Colonoscopy 02/2015 normal repeat in 10 years Cervical herniated disc 04/25/2014 KINGS (generalized anxiety disorder) 04/24/2014 Issue of repeat prescriptions 04/08/2014 S/P endometrial ablation 2013 Hypothyroid 04/19/2013 Tobacco use 03/25/2013 Migraines 02/25/2013 Resolved Problems Problem Noted Date Diagnosed Date Resolved Date Thyroid activity decreased 02/16/2015 1 09/02/2016 Cervical radiculopathy at C7 04/25/2014 07/03/2017 Cervical disc disease 08/01/20132016 Encounters Date Type Department Care Team Description 07/17/2025 Telephone [facility] [address] [place] [address] Stephy Stover PA Appointment Request (REQUEST) 07/17/2025 Nurse Triage [facility] [address] [place] [address] Stephy Stover PA Leg Swelling 06/27/2025 7:45 AM CREDIT COLLECTIONS MANAGER Telemedicine [facility] [address] [place] [address] Mariella Gipson MD Telehealth; Medication Management; Follow Up 06/26/2025 Travel 06/13/2025 7:30 AM CDT Orders Only [facility] [address] [place] [address] Lab, [facility] 06/13/2025 Travel from Last 3 Months Immunizations Immunization Administration Dates Next Due Tdap 02/11/2014 Zoster (Shingrix-RZV, recombinant) 11/21/2023 Family History Medical History Relation Name Comments Cancer-breast Maternal Aunt Diabetes Mother controlled by d iet and exercise Relation Name Status Comments Father alcoholism lead to suicide Maternal Aunt Mother Alive Social History Tobacco Use Types Packs/Day Years Used Date Smoking Tobacco: Former Cigarettes 0.3 29.7 0 11/06/1992 - 07/21/2022 Smokeless Tobacco: Never Tobacco Cessation:Counseling Given: Yes Comments:one pack a week average Alcohol Use Standard Drinks/Week Comments Yes 0 (1 standard drink = 0.6 oz pur e alcohol) few times a month PHQ-2 Answer Date Recorded PHQ-2 TOTAL SCORE 1 06/26/2025 Social Connections Answer Date Recorded Do you often feel lonely or isolated from those around you? 0 11/25/2024 Alcohol Use Answer Date Recorded How often do you have a drink containing alcohol ? 2 03/02/2023 Average Number of Drinks Not on file 023 Frequency of Binge Drinking Not on file 02/12 Financial Resource Strain Answer Date R ecorded Difficulty of Paying Living Expenses 3 11/25/2024 Difficulty of Paying Living Expenses Not on file 11/25/2024 Food Insecurity Answer Date Recorded Do you worry your food will run out before you are able to buy more? 1 11/25/2024 Transportation Needs Answer Date Record ed Does lack of transportation keep you from medica l appointments? 1 11/25/2024 Does lack of transportation keep you from work, meetings or getting things that you need? 1 11/25/2024 Housing Stability Answer Date Recorded What is your housing situation today? 1 11/25/2024 Utilities Answer Date Recorded Do you have trouble paying f or utilities (for example, heat, electricity, water, phone)? 1 11/25/2024 Comments No Sex and Gender Information Value Date Recorded Sex Assigned at Not on file Legal Sex Female 3:01 PM CREDIT COLLECTIONS MANAGER Gender Identity Not on file Sexual Orientation Not on file Last Filed Vital Signs Vital Sign Reading Time Taken Comments Blood Pressure 135/88 01/22/2025 8:32 AM CDT Pulse 100 01/22/2025 8:32 AM CDT Temperature 36.7 C (98.1 F) 02/21/2023 10:22 AM CDT Respiratory Rate 16 01/11/2019 8:03 PM CDT Oxygen Saturation 97% 01/22/2025 8:32 AM CDT Inhaled Oxygen Concentration - - Weight 95.7 kg (211 lb) 01/15/2025 2:24 PM CDT Height 166 cm (5' 5.35) 01/08/2025 9:14 AM CDT Body Mass Index 34.73 01/08/2025 9:14 AM CDT Plan of Treatment Upcoming Encounters Date Type Department Care Team (Late st Contact Info) Description 07/21/2025 9:05 AM CREDIT COLLECTIONS MANAGER Office Visit [facility] [address] [place] [address] Maddie Borrero MD [address] [place] [address] 12/26/2025 7:45 AM CDT Telemedicine [facility] [address] [place] [address] Mariella Gipson MD [address] [place] [address] Health Maintenance Due Date Last Done Comments HIV for age 15-65 12/11/1979 Pneumococcal series for age 50+ (1 of 1 - PCV) 2014 RSV vaccine for adults or (1 - Risk 50-74 years 1-dose series) 2014 Zoster (shingles) series for age 50+ (2 of 2) 01/16/2024 11/21/2023 Tetanus booster 02/12/2024 02/11/2014 COVID-19 vaccine series (3 - season) 2025 01/28/2021, 12/29/2020 Influenza Vaccine (#1) 2025 Mammogram for age 45-75 11/28/2025 11/29/19 25, 11/21/2023, 05/09/2022, Additional history exists BMI (ht and wt on same day) for age 18+ 01/08/2026 01/08/2025, 11/25/2024, 11/21/2023, Additional history exists Depression screening for age 12+ 06/26/2026 06/26/2025, 12/24/2024, 07/30/2024, Additional history exists Pap test for age 21-65 11/20/2028 , 11/21/2023, 11/16/2018, Additional history exists Lipids for age 45-75 11/21/2029 11/21/2024, 11/21/2023, 04/27/2022, Additional history exists Colonoscopy through age 75 01/29/203001/29, 03/06/2015, 03/06/2015 Hepatitis C screening for age 18-79 Completed 06/24/2016 Hepatitis B series for 19+ Aged Out N o longer eligible based on patient's age to complete this topic Procedures Procedure Name Priority Date/Time Associated Diagnosis Comments TSH WITH REFLEX Routine 06/13/2025 7:37 AM CDT Encounter for lithium monitoring BASIC METABOLIC PANEL Routine 06/13/2025 7:37 AM CDT Encounter for lithium monitoring LITHIUM Routine 06/13/2025 7:37 AM CDT Encounter for lithium monitoring SCAN-COLONOSCOPY 01/29/2025 12:0 0 AM CDT XR MAMMO BILAT SCREENING Routine 11/28/2024 2:36 PM CDT Visit for screening mammogram LIPID PANEL W REFLEX MEASURED LDL Routine 11/21/2024 2:41 PM CDT Screening cholesterol level COLORING MACHINE OPERATOR THIN PREP PAP SCREEN IMAGED Routine 11/21/2023 8:47 AM CDT Screening for cervical cancer ANTI HCV Routine 06/24/2016 9:41 AM CREDIT COLLECTIONS MANAGER Need for hepatitis C screening test from Last 3 Months or Most Recently Relevant to Health Maintenance Results * TSH WITH REFLEX (06/13/2025 7:37 AM CDT) TSH W/REFLEX TO FT4 2.88 0.40 - 4.50 mIU/L 06/14/2025 5:23 AM CDT [facility] Blood BLOOD SPECIMEN / Unknown [facility] / Unknown 06/13/2025 7:37 AM CDT 06/13/2025 7:37 AM CDT us Mariella Gipson MD CHEMISTRY Final Result Performing Organization Address City/[facility]/ZIP Co de Phone Number [facility] [address] [address], * LITHIUM (06/13/2025 7:37 AM CDT) LITHIUM 0.8 0.6 - 1.2 mmol/L 06/14/2025 10:05 AM CDT [facility] Blood BLOOD SPECIMEN / Unknown [facility] / Unknown 06/13/2025 7:37 AM CDT 06/13/2025 7:37 AM CDT us Mariella Gipson MD CHEMISTRY Final Result [facility] [address] [address], [place] [phone] * (ABNORMAL) BASIC METABOLIC PANEL (06/13/2025 7:37 AM CDT) SODIUM 137 135 - 146 mmol/L 06/14/2025 5:03 AM CDT [facility] POTASSIUM 4.1 3.5 - 5.3 mmol/L 06/14/2025 5:03 AM CDT [facility] CARBON DIOXIDE 27 20 - 32 mmol/L 06/14/2025 5:03 AM CDT [facility] GLUCOSE 119(H) 65 - 99 mg/dL 06/14/2025 5:03 AM CDT [facility] Comment: Fasting reference interval For someone without known diabetes, a glucose value between 100 and 125 mg/dL is consistent with prediabetes and should be confirmed with a follow-up test. CALCIUM 9.3 8.6 - 10.4 mg/dL 06/14/2025 5:03 AM CDT [facility] CREATININE 0.91 0.50 - 1.05 mg/dL 06/14/2025 5:03 AM CDT [facility] BUN/CREATININE RATIO SEE NOTE: 6 - 22 (calc) 06/14/2025 5:03 AM CDT [facility] Comment: Not Reported: BUN and Creatinine are within reference range. EGFR 72 > OR = 60 mL/min/1. 73m2 06/14/2025 5:03 AM CDT [facility] UREA NITROGEN (BUN) 13 7 - 25 mg/dL 06/14/2025 5:03 AM CDT [facility] ELECTROLYTE BALANCE 6(L) 7 - 17 mmol/L (calc) 06/14/2025 5:03 AM CDT [facility] CHLORIDE 104 98 - 110 mmol/L 06/14/2025 5:03 AM CDT [facility] Blood BLOOD SPECIMEN / Unknown [facility] / Unknown 06/13/2025 7:37 AM CDT 06/13/2025 7:37 AM CDT Mariella Gipson MD CHEMISTRY Final Result [facility] [address] [place] [address], * SCAN-COLONOSCOPY (01/29/2025 12:00 AM CDT) us Scanner OTHER Final Result * XR MAMMO BILAT SCREENING (11/28/2024 2:36 PM CDT) Anatomical Region Laterality Modality BREASTS, Breast Left, Breast Right Bilateral Mammography Impressions 11/29/2024 7:50 AM CDT There is no radiographic evidence for malignancy. Recommend annual mammograms. MAMMOGRAM ASSESSMENT: ACR 1 Negative PATIENTS: You will also receive a letter with your examination results in an easy to read format. If you have questions about your results, please contact your referring provider. Narrative 11/29/2024 7:50 AM CDT For Patients: As a result of the Century Cures Act, medical imaging exams and procedure reports are released immediately into your electronic medical record. You may view this report before your referring provider. If you have questions, please contact your health care provider. XR MAMMO BILAT SCREENING [[id number]] CLINICAL HISTORY: This is an asymptomatic 58 y.o. patient. INDICATION FOR EXAM: Mammogram Screening. TECHNIQUE: CC and MLO views were obtained. This study was evaluated with the assistance of Computer-Aided Detection. COMPARISON FILM: Yes 11/21/23 [facility] 05/09/22 [employer] FINDINGS: There are scattered areas of fibroglandular density. There are no dominant masses, suspicious micro calcifications or areas of architectural distortion. us Stephy ALVARADO MAMMO Final R esult * (ABNORMAL) LIPID PANEL W REFLEX MEASURED LDL (11/21/2024 2:41 PM CDT) CHOLESTEROL, TOTAL 216(H) <200 mg/dL [facility] HDL CHOLESTEROL 93 > OR = 50 mg/dL [facility] TRIGLYCERIDES 221(H) <150 mg/dL [facility] Comment: If a non-fasting specimen was collected, consider repeat triglyceride testing on a fasting specimen if clinically indicated. Jono et al. J. of Clin. Lipidol. 2015;9:129-169. LDL-CHOLESTEROL 92 mg/dL (calc) [facility] Comment: Reference range: <100 Desirable range <100 mg/dL for primary prevention; <70 mg/dL for patients with CHD or diabetic patients with > or = 2 CHD risk factors. LDL-C is now calculated using the Matt calculation, which is a validated novel method providing better accuracy than the Friedewald equation in the estimation of LDL-C. Vidal PADILLA et al. ROZINA. 2013;310(19): 6151-4545 (http://education.KustomNote/faq/NDK546) CHOL/HDLC RATIO 2.3 <5.0 (calc) [facility] NON HDL CHOLESTEROL 123 <130 mg/dL (calc) [facility] Comment: For patients with diabetes plus 1 major ASCVD risk factor, treating to a non-HDL-C goal of <100 mg/dL (LDL-C of <70 mg/dL) is considered a therapeutic option. Blood BLOOD SPECIMEN / Unknown 11/21/2024 2:41 PM CDT 11/21/2024 2:42 PM CDT Stephy ALVARADO CHEMISTRY Final R esult [facility] [address] [place] [address], [facility] [address] [place] [address] * COLORING MACHINE OPERATOR THIN PREP PAP SCREEN IMAGED (11/21/2023 8:47 AM CDT) Case Report Gynecologic Cytology Report Case: [id number] Authorizing Provider: Stephy Stover PA Collected: 11/21/2023 0847 Ordering Location: [facility] Received: 11/22/2023 0855 Clinic First Screen: En He Rescreen: Julissa Merritt Specimen: COLORING MACHINE OPERATOR ThinPrep Vial Screening, Cervical 12/05/2023 10:45 AM CDT [facility]AL [facility]AT[facility] INTERPRETATION/ RESULT NEGATIVE FOR INTRAEPITHELIAL LESION OR MALIGNANCY (NIL) (none) 12/05/2023 10:45 AM CDT [facility] EN[facility]AL LABORATORY at 1045 CDT SPECIMEN ADEQUACY Satisfactory for evaluation No endocervical component seen 12/05/2023 10:45 AM CDT [facility] ENTRMT LABORATORY HPV REQUEST HPV and PAP 12/05/2023 10:45 AM CDT [facility] Date of LMP unsure 12/05/2023 10:45 AM CDT [facility] EN[facility] LAB[facility] Last Pap Date 11/16/18 12/05/2023 10:45 AM CDT [facility] EN[facility] Last Pap Result NIL 10:45 AM CDT [facility] EN[facility] Abnormal Pap or [place] Bx in last 5 years No 12/05/2023 10:45 AM CDT [facility] Menstrual Status Regular Periods 12/05/2023 10:45 AM CDT [facility] [place] Bx Done Today No 12/05/2023 10:45 AM CDT [facility] Additional Information None given 12/05/2023 10:45 AM CDT [facility] EN[facility] Comment: Cytology is screened at [facility] - [address], [place] [address] and [facility] - [address] [place] [address] and [facility] - [address] [place] [address] [facility] - [address], [place] [address] Automated Review Successful 12/05/2023 10:45 AM CDT [facility] Comment:Specimen processed s uccessfully by automated employment assistant device, ThinPrep Imaging System, [employer] ANCILLARY TESTING COLORING MACHINE OPERATOR HPV Ordered, Please see separate report 12/05/2023 10:[address] [facility] Note The pap test is a screening technique, not a diagnostic procedure. It is used primarily to screen for squamous cancers and precursor lesions. Published studies have shown that it is subject to both false negative and false positive results. The pap test should not be used as the sole means to diagnose or exclude pre-malignant and malignant lesions. 12/05/2023 10:45 AM CDT [facility] LABORAT[facility]-C ENTRAL LABORATORY Other (Cervical) Non-Blood / Unknown 11/21/2023 8:47 AM CDT 11/22/2023 8:55 AM CDT Stephy ALVARADO PATHOLOGY/CYTOLOGY Theodora l Result Performing Organization Address City/[facility]/ZIP Co de Phone Number [facility] [address] [place] [address], [place] * ANTI HCV [65784.2] (06/24/2016 9:41 AM CREDIT COLLECTIONS MANAGER) HEPATITIS C ANTIBODY Non-Reacti ve Non-Reacti ve 06/24/2016 6:08 PM CREDIT COLLECTIONS MANAGER [facility]-[place] TR[facility] LABORATORY Blood BLOOD SPECIMEN / Unknown [facility] / Unknown 06/24/2016 9:41 AM CREDIT COLLECTIONS MANAGER 06/24/2016 9:41 AM CREDIT COLLECTIONS MANAGER Narrative [facility] - 06/24/2016 6:08 PM CREDIT COLLECTIONS MANAGER Antibodies to HCV not detected; does not exclude the possibility of exposure to HCV. Stephy ALVARADO SEND OUTS Final R esult Performing Organization Address City/[facility] Co de Phone Number [facility] [address] [place] [address], from Last 3 Months or Most Recently Relevant to Health Maintenance Insurance [place] [id number] Advance Directives * Full Code (Latest Code Status on File) Date Activated Date Inactivated Comments 10/20/2017 7:30 AM 10/21/2017 2:33 AM * Full Code Date Activated Date Inactivated Comments 10/11/2017 8:25 AM 10/12/2017 2:34 AM * Full Code Date Activated Date Inactivated Comments 10/04/2017 7:46 AM 10/05/2017 2:57 AM * Full Code Date Activated Date Inactivated Comments 09/29/2017 7:41 AM 09/30/2017 4:13 AM * Full Code Date Activated Date Inactivated Comments 09/27/2017 8:07 AM 09/28/2017 3:01 AM Care Teams Terrestrial Ecologist Relationship Specialty Start Date End Date Stephy Stover PA [facility] [address] [place] [address] PCP - General Family Practice 01/19/13 Sheela Damon, [facility] [address] [place] [address] ROSAMARIA Perez [address] [facility] Sql Application Developer 09/05/17
--- OUTSIDE RECORDS SUMMARY | 2025-07-19 12:52 | XMS_ITS | Clinical Summary ---
Author Organization [facility] Address [address] [place] [address]. [place] [address] Care Team Providers Care Paste Mixing Supervisor Name Role Phone Clinic, [facility] Primary Care Provider Allergies Active Allergy Reactions Criticality Noted Date Comments Amoxicillin Rash Low 05/28/2019 Latex Itching 02/04/2014 Molds & Smuts Other (See Comments) 01/28/2014 Sneezing Prednisone 02/11/2014 Other reaction(s): Psychosis Medications omeprazole (PRILOSEC) [address] capsule Take 20 mg by mouth every morning Active diazepam (VALIUM) 5 MG tablet Take 1 tablet (5 mg) by mouth the night before appointment and 2 tablets (10 mg) 1 hour prior to dentist appointment Active DULoxetine (CYMBALTA) 60 MG capsuleIndicatio ns:Severe recurrent major depression without psychotic features (H) Take 1 capsule (60 mg) by mouth daily 30 capsule 9 Active levothyroxine (SYNTHROID/LEVOT HROID) 200 MCG tabletIndication s:Hypothyroidism , unspecified type Take 1 tablet (200 mcg) by mouth daily 30 tablet 9 Active lithium ER (LITHOBID/ESKALI TH CR) 300 MG CR tabletIndication s:Severe recurrent major depression without psychotic features (H) Take 1 tablet (300 mg) by mouth every 12 hours 60 tablet 9 Active OLANZapine zydis (ZYPREXA) 5 MG ODTIndications:S evere recurrent major depression without psychotic features (H) Take 1 tablet (5 mg) by mouth once a week 10 tablet 9 Active QUEtiapine (SEROQUEL) 200 MG tabletIndication s:Severe recurrent major depression without psychotic features (H) Take 1 tablet (200 mg) by mouth At Bedtime 30 tablet 9 Active traZODone (DESYREL) 50 MG tabletIndication s:Severe recurrent major depression without psychotic features (H) Take 1 tablet (50 mg) by mouth nightly as needed for sleep 30 tablet 9 Active Active Problems Problem Noted Date Diagnosed Date Severe recurrent major depre ssion without psychotic features 06/01/2019 Depression 05/28/2019 Family History Medical History Relation Comments Alcoholism Brother Hypertension Father Diabetes Mother Hypertension Mother Relation Status Comments Brother Father Mother Social History Tobacco Use Types Packs/Day Years Used Date Smoking Tobacco: Every Day Cigarettes Smokeless Tobacco: Never Alcohol Use Standard Drinks/Week Comments Not Currently 0 (1 standard drink = 0.6 oz pur e alcohol) Adolescent Education Answer Date Record ed Getting School Help Needed Not on file 05/05 Comments Unknown Sex and Gender Information Value Date Recorded Sex Assigned at Not on file Legal Sex Female 2:06 PM CDT Gender Identity Not on file Sexual Orientation Not on file Last Filed Vital Signs Vital Sign Reading Time Taken Comments Blood Pressure 119/84 06/18/2019 9:23 AM PAINTER DECORATOR Pulse 80 06/18/2019 9:23 AM PAINTER DECORATOR Temperature 37.6 C (99.6 F) 06/18/2019 9:23 AM PAINTER DECORATOR Respiratory Rate 16 06/18/2019 9:23 AM PAINTER DECORATOR Oxygen Saturation 99% 06/18/2019 9:23 AM PAINTER DECORATOR Inhaled Oxygen Concentration - - Weight 89.8 kg (198 lb) 06/18/2019 9:23 AM PAINTER DECORATOR Height 165.1 cm (5' 5) 05/28/2019 7:15 PM CDT Body Mass Index 32.95 05/28/2019 7:15 PM CDT Plan of Treatment Not on file Advance Directives For more information, please contact: [phone] * Full Code (Latest Code Status on File) Date Activated Date Inactivated Comments 05/28/2019 8:32 PM 06/18/2019 4:06 PM Question Answer Comments Code status determined by: Other (please documen t) Care Teams Paste Mixing Supervisor Relationship Specialty Start Date End Date [facility], [place] [address] PCP - General 05/28/19
--- OUTSIDE RECORDS SUMMARY | 2025-07-19 12:52 | XMS_ITS | Clinical Summary ---
Author Organization [facility] Address [address] [address] Care Team Providers Care Rn Recovery Name Role Phone Unavailable Primary Care Provider Unavailabl e Source Comments You are receiving this document as you are listed as the primary care provider,follow-up provider, or the patient has been referred to you for consultation.This is in compliance with the Medicare andMedicaid EHR Incentive Program,which states Providers who transition their patient to another setting of careor provider of care or refers their patient to another provider of care shouldprovide summary care record for each transition of care or referral. [email or web address] Medications levothyroxine (SYNTHROID) 175 MCG tablet Take 175 mcg by mouth. 08/28/2019 Active DULoxetine (CYMBALTA) 60 MG capsule Take 60 mg by mouth daily. 1 08/15/2019 Active lithium carbonate ER (LITHOBID) 300 MG extended release tablet Take 300 mg by mouth. 06/18/2019 Active methocarbamol (ROBAXIN) 500 MG tablet 08/27/2019 Active omeprazole (PRILOSEC) 20 MG capsule TAKE ONE CAPSULE DAILY IN THE MORNING 2 08/15/2019 Active traZODone (DESYREL) 50 MG tablet Take 50-100 mg by mouth at bedtime as needed. for sleep 2 08/15/2019 Active buprenorphine-n aloxone (SUBOXONE) 8-[address] 1 Tablet under tongue. 03/28/2019 Active Social History Tobacco Use Types Packs/Day Years Used Date Smoking Tobacco: Never Assessed Comments Unknown Sex and Gender Information Value Date Recorded Sex Assigned at Not on file Legal Sex Female 9:40 AM SECRETARIAL TEACHER Gender Identity Not on file Sexual Orientation Not on file Last Filed Vital Signs Vital Sign Reading Time Taken Comments Blood Pressure 111/81 09/13/2019 8:25 AM SECRETARIAL TEACHER Pulse 68 09/13/2019 8:25 AM SECRETARIAL TEACHER Temperature - - Respiratory Rate - - Oxygen Saturation - - Inhaled Oxygen Concentration - - Weight 90.7 kg (200 lb) 09/13/2019 8:25 AM SECRETARIAL TEACHER Height 165.1 cm (5' 5) 09/13/2019 8:25 AM SECRETARIAL TEACHER Body Mass Index 33.28 09/13/2019 8:25 AM SECRETARIAL TEACHER Plan of Treatment Health Maintenance Due Date Last Done Comments Cervical Cancer Screening Due 1964 Colon Cancer Screening Plan Due 1964 Hep C Screening (Preventive Services) 1964 Mammogram 1964 HIV Screening (Preventive Services) 1980 Adult Preventive Visit 1982 Cholesterol 2009 Pneumococcal Vaccine 50+ Yrs (1 of 1 - PCV) 2014 Zoster/Shingles Vaccine (1 of 2) 2014 DTaP/Tdap/Td Vaccine (2 - Tdap) 02/12/2024 4 COVID-19 Vaccine (2 - 2024-2 6 season) 2025 12/29/2020 Influenza Vaccine (#1) 2025 RSV Vaccine (1 - 1-dose 75+ series) 12/11/2039 HepA Vaccine Aged Out No longer eligi ble based on patient's age to complete this topic HepB Vaccine Aged Out No longer eligi ble based on patient's age to complete this topic Hib Vaccine Aged Out No longer eligi ble based on patient's age to complete this topic IPV (Polio) Vaccine Aged Out No longe r eligible based on patient's age to complete this topic MCV4 Vaccine Aged Out No longer eligi ble based on patient's age to complete this topic Meningococcal B Vaccine Aged Out No l onger eligible based on patient's age to complete this topic
--- NOTE | 2025-07-19 13:19 | CRLHL7_ITS ---
For Patients: As a result of the Century Cures Act, medical imaging exams and procedure reports are released immediately into your electronic medical record. You may view this report before your referring provider. If you have questions, please contact your health care provider. INDICATION: Shortness of breath TECHNIQUE: Two view chest. FINDINGS: The lungs are clear. The heart, mediastinum and pulmonary vessels are of normal size. There is no evidence of pleural disease. IMPRESSION: Negative chest. Dictated by Amanda Duarte MD @ 07/19/2025 2:06:02 PM (Electronically Signed)
--- NOTE | 2025-07-19 13:23 | ED.SOB ---
HPI - SOB/Dyspnea General Date Seen: 07/19/25 Chief Complaint: Shortness of Breath/Dyspnea Stated Complaint: shortness of breath Time Seen by Provider: 07/19/25 12:51 Source: patient Mode of arrival: ambulatory Limitations: no limitations History of Present Illness HPI Narrative: Patient is a 59-year-old female presenting to the emergency department for shortness of breath. Denies any history of heart disease. Does have a history of hypothyroidism on levothyroxine migraines states for the past week she has been noticing increased swelling of her lower extremities. States she has remained source to keep her legs elevated to help with the swelling. Swelling is usually better in the morning to get worse throughout the day has she is on her feet. States she is short of breath when lying flat some has been sleeping in recliner for the past week. Has never had issues with this before. States she has never had ultrasound of her heart. States swelling right now it is much better than I will typically is but again she states it gets worse throughout the day and she has not been at work today. States she has some mild intermittent chest discomfort but nothing too noticeable she states. Denies any history of blood clots. States he has had recent dental procedures were she was sedated. No history of cancer. Denies hemoptysis. Denies any abdominal pain, lightheadedness, dizziness, weakness, numbness, fevers, chills, diarrhea, constipation, dysuria. No other concerns noted at this time. Related Data Home Medications ?Medication ?Instructions ?Recorded ?Confirmed duloxetine 30 mg capsule,delayed 90 mg PO DAILY 02/21/22 07/19/25 release estradiol 1 mg tablet 1 mg PO DAILY 02/21/22 07/19/25 lithium carbonate 300 mg tablet 300 mg PO BID 02/21/22 07/19/25 omeprazole 20 mg capsule,delayed 20 mg PO BID 02/21/22 07/19/25 release progesterone micronized 100 mg 100 mg PO DAILY 02/21/22 07/19/25 capsule hydroxyzine HCl 25 mg tablet 25 mg PO BID PRN 10/31/22 07/19/25 buspirone 10 mg tablet 30 mg PO BID 06/03/24 07/19/25 levothyroxine 100 mcg tablet mcg PO 07/19/25 levothyroxine 88 mcg tablet mcg PO 07/19/25 sennosides 8.6 mg tablet (senna) 17.2 mg PO BID 07/19/25 07/19/25 trazodone 100 mg tablet 100 mg PO QPM 07/19/25 07/19/25 Previous Rx's ?Medication ?Instructions ?Recorded buprenorphine 8 mg-naloxone 2 mg 2 tab sublingual DAILY #56 tabs 05/05/25 sublingual tablet Allergies Allergy/AdvReac Type Severity Reaction Status Date / Time latex Allergy Unknown Rash Verified 07/19/25 13:08 amoxicillin (From Augmentin) Allergy Hives Verified 07/19/25 13:08 clavulanic acid (From Allergy Hives Verified 07/19/25 13:08 Augmentin) peanuts Allergy Severe filberts-throat Uncoded 01/27/25 09:28 itchy/scratchy Penicillin Allergy Unknown Rash Uncoded 01/27/25 09:28 Review of Systems Status of ROS: Reports: 10 or more systems reviewed and unremarkable except as noted in History and below [facility] Medical History Severe recurrent major depression without psychotic features ?F33.2 - Major depressive disorder, recurrent severe without psychotic features (ICD-10) Controlled substance agreement signed ?Z79.899 - Other penitentiary (current) drug therapy (ICD-10) Abdominal pain ?R10.9 - Unspecified abdominal pain (ICD-10) Chest pain ?R07.9 - Chest pain, unspecified (ICD-10) Constipation ?K59.00 - Constipation, unspecified (ICD-10) Contusion of right hand ?S60.221A - Contusion of right hand, initial encounter (ICD-10) Depression ?F32.A - Depression, unspecified (ICD-10) Opioid use disorder ?F11.90 - Opioid use, unspecified, uncomplicated (ICD-10) Osteoarthritis of right knee ?M17.11 - Unilateral primary osteoarthritis, right knee (ICD-10) Anxiety ?F41.9 - Anxiety disorder, unspecified (ICD-10) Arthritis ?M19.90 - Unspecified osteoarthritis, unspecified site (ICD-10) Sleep apnea ?G47.30 - Sleep apnea, unspecified (ICD-10) Thyroid disease ?E07.9 - Disorder of thyroid, unspecified (ICD-10) Neck pain ?M54.2 - Cervicalgia (ICD-10) Surgical History History of arthroscopy of right shoulder ?Z98.890 - Other specified postprocedural states (ICD-10) History of arthroscopy of left knee ?Z98.890 - Other specified postprocedural states (ICD-10) Hx of cholecystectomy ?Z90.49 - Acquired absence of other specified parts of digestive tract (ICD-10) History of total left knee replacement (~2011) ?Z96.652 - Presence of left artificial knee joint (ICD-10) Social History Smoking Status: Former smoker Do you use any of these nicotine containing products: None Second hand tobacco smoke exposure: No How often do you have a drink containing alcohol: 2-3 times a week How many standard drinks containing alcohol do you have on a typical day: 1 or 2 How often do you have six or more drinks on one occasion: Less than monthly AUDIT-C Alcohol total score: 4 Non-prescribed substance use: denies use Caffeine: Yes (coffee/pop 4/day) Are you using contraception or practicing any form of control: No service: No Exam Narrative: Exam Narrative: Const: Well-nourished, Well-developed, in no distress Eyes: PERRL, no conjunctival injection, and symmetrical lids HENT: Atraumatic external nose and ears. Moist mucous membranes. Neck: Symmetric, trachea midline, No thyromegaly. CVS: RRR, No murmurs or gallops. Peripheral pulses 2+ and equal in all extremities, no lower extremity edema RESP: Unlabored respiratory effort. Clear to auscultation bilaterally. GI: Nontender/Nondistended, No rebound or guarding. MSK:Extremities w/o deformity, Normal Active ROM Skin: Warm, Dry. No rashes or lesions. Neuro: Normal Muscle tone, No focal neurological deficits. Psych: Awake, Alert, & Oriented x3. Appropriate mood and affect. Const: Vital Signs, click to edit/add: Vital Signs - 24 hr 07/19/25 12:58 07/19/25 13:48 07/19/25 13:49 Temperature 97.6 F Pulse Rate 58 L 64 Pulse Rate [Pulse Oximeter] 56 L Respiratory Rate 18 12 18 Blood Pressure 192/95 H Blood Pressure [Ri ght Upper Arm] 195/107 H Pulse Oximetry 96 97 98 Oxygen Delivery Me thod Room Air 07/19/25 14:00 07/19/25 14:02 07/19/25 14:03 Temperature Pulse Rate 55 L 59 L 54 L Pulse Rate [Pulse Oximeter] Respiratory Rate 10 L 13 Blood Pressure 183/90 H Blood Pressure [Ri ght Upper Arm] Pulse Oximetry 97 98 97 Oxygen Delivery Me thod 07/19/25 14:15 07/19/25 14:30 07/19/25 14:33 Temperature Pulse Rate 55 L 51 L 54 L Pulse Rate [Pulse Oximeter] Respiratory Rate 10 L Blood Pressure 182/91 H Blood Pressure [Ri ght Upper Arm] Pulse Oximetry 96 94 95 Oxygen Delivery Me thod 07/19/25 14:45 Temperature Pulse Rate 53 L Pulse Rate [Pulse Oximeter] Respiratory Rate Blood Pressure Blood Pressure [Ri ght Upper Arm] Pulse Oximetry 97 Oxygen Delivery Me thod Course Vital Signs Vital signs: Initial Vital Signs Temperature 97.6 F 07/19/25 12:58 Temperature Source Temporal Artery Scan 07/19/25 12:58 Pulse Rate 56 L 07/19/25 12:58 Respiratory Rate 18 07/19/25 12:58 Blood Pressure 195/107 H 07/19/25 12:58 Blood Pressure Mean 136 H 07/19/25 12:58 Blood Pressure Position Sitting 07/19/25 12:58 Pulse Oximetry 96 07/19/25 12:58 Oxygen Delivery Method Room Air 07/19/25 12:58 Vital Signs Temperature 97.6 F 07/19/25 12:58 Pulse Rate 56 L 07/19/25 12:58 Respiratory Rate 18 07/19/25 12:58 Blood Pressure 195/107 H 07/19/25 12:58 Pulse Oximetry 96 07/19/25 12:58 Oxygen Delivery Method Room Air 07/19/25 12:58 Temperature 97.6 F 07/19/25 12:58 Pulse Rate 53 L 07/19/25 14:45 Respiratory Rate 10 L 07/19/25 14:33 Blood Pressure 182/91 H 07/19/25 14:33 Pulse Oximetry 97 07/19/25 14:45 Oxygen Delivery Method Room Air 07/19/25 12:58 MDM - SOB/Dyspnea MDM Narrative Medical decision making narrative: Patient is a 5-year-old female presenting for shortness of breath. The differential diagnosis of shortness of breath is broad and includes common etiologies such as COPD, asthma, pneumonia, viral syndrome, etc. More serious etiologies considered include PE, CHF, coronary artery disease, pneumothorax, aortic dissection, aortic aneurysm. With her description with orthopnea and lower extremity swelling I am concerned for new onset CHF. Will order a BNP and chest x-ray. This will also help look for signs of pneumonia or pneumothorax. She is having some mild chest pain will order EKG and troponin for possible cardiac abnormalities. She is otherwise look stable and I have low concern for aortic dissection or aortic aneurysm. D-dimer will be ordered that for signs of a PE. Will order viral swabs, CBC, BMP, magnesium. CBC returned showing no acute concerning abnormalities. Hemoglobin at baseline. Age adjusted D-dimer within normal limits. BMP shows no concerning abnormalities. BNP is slightly elevated 446. Viral swabs showed no concerning abnormalities. EKG troponin showed no concerning findings as interpreted by myself. Considering length of symptoms I do not believe repeat troponin is necessary. Chest x-ray interpreted by myself and the radiologist independently showed no acute concerning abnormalities. TSH within normal limits. Based on they orthopnea, lower extremity edema, slightly elevated BNP symptoms are consistent with heart failure. Patient is overall doing well though I do believe she is discharged. She can follow up with her primary care provider for this. This way if they do start her on any diuretics they can better monitor her. Lab Data Labs: Lab Results 07/19/25 07/19/25 07/19/25 Range/Units 13:19 13:23 13:40 WBC 5.35 (4.50-11.00) K/uL RBC 3.56 L (4.00-5.20) m/uL Hgb 10.1 L (12.0-16.0) gm/dL Hct 32.3 L (33.0-51.0) % MCV 91 (80-100) fL MCH 28 (26-34) pg MCHC 31 L (32-36) gm/dL RDW Coeff of Ada 11.6 (11.5-15.5) % Plt Count 263 (140-440) K/uL Neut % (Auto) 57.3 (42.0-72.0) % Lymph % (Auto) 27.7 (20-44) % Douglas % (Auto) 12.3 H (0.0-11.0) % Eos % (Auto) 2.1 (0.0-7.0) % Baso % (Auto) 0.4 (0.0-3.0) % Neut # (Auto) 3.07 (1.7-7.0) K/uL Lymph # (Auto) 1.48 (0.90-2.90) K/uL Douglas # (Auto) 0.70 (0.00-0.90) K/UL Eos # (Auto) 0.11 (0.00-0.50) K/uL Baso # (Auto) 0.02 (0.00-0.30) K/uL Abs Immat Gran (auto) 0.01 (0.00-0.30) K/uL Imm/Tot Granulo (auto) 0.2 % D-Dimer Quant (PE/DVT) 0.51 H (0.00-0.50) ug/ml Sodium 137 (135-149) mmol/L Potassium 3.8 (3.6-5.1) mmol/L Chloride 100 (96-114) mmol/L Carbon Dioxide 27 (20-32) mmol/L Anion Gap 10 (7-15) mEq/L BUN 10 (7-30) mg/dL Creatinine 0.8 (0.5-1.5) mg/dL Estimated Creat Clear 67.29 Estimated GFR 84 ml/min Glucose 90 (60-115) mg/dL Calcium 9.0 (8.4-10.6) mg/dL Magnesium 1.9 (1.5-2.6) mg/dL POC Troponin I High Sensi 5.6 (2.9-13.0) pg/mL NT-Pro-B Natriuret Pep 446 H (See Note) pg/mL TSH 1.080 (0.270-4.200) uIU/mL SARS-CoV-2 (PCR) Negative SARS-CoV-2 (Negative) Influenza Type A (PCR) Negative PCR FLU A (Negative) Influenza Type B (PCR) Negative PCR FLU B (Negative) RSV (PCR) Negative PCR RSV (Negative) Imaging Data Chest x-ray: Attestation: I have reviewed the pertinent imaging results. Radiologist's impression: Negative chest. Dictated by Amanda Duarte MD @ 07/19/2025 2:06:02 PM ECG Data Attestation: I personally reviewed and interpreted this ECG as follows: Prior ECG tracings: available for review Interpretation: Sinus bradycardia with a rate of 54 beats per minute, normal intervals, normal axis, no ST or T-wave abnormalities. Appears similar previous EKG on file Discharge Plan Discharge Clinical Impression: Shortness of breath Patient Disposition: Home, Self-Care Condition: Stable Instructions: Heart Failure (DC) Additional Instructions: I believe your showing early signs of mild heart failure. You will need an outpatient echocardiogram. This is an ultrasound of your heart. You will also need to follow-up with her primary care provider. Keep your appointment for Monday and inform them that you were seen in the emergency department. They may start you on water pills at that time or may wait for further workup. Return to emergency department for new or worsening symptoms. Prescriptions: No Action duloxetine 30 mg capsule,delayed release(DR/EC) 90 mg PO DAILY progesterone micronized 100 mg capsule 100 mg PO DAILY lithium carbonate 300 mg tablet 300 mg PO BID omeprazole 20 mg capsule,delayed release(DR/EC) 20 mg PO BID estradiol 1 mg tablet 1 mg PO DAILY hydroxyzine HCl 25 mg tablet 25 mg PO BID PRN buspirone 10 mg tablet 30 mg PO BID buprenorphine-naloxone 8-2 mg tablet, sublingual 2 tab sublingual DAILY Qty: 56 2RF Rx Instructions: this is an early refill. she is due to fill this february 10 (though a day r two early for convenience because she works is fine) levothyroxine 100 mcg tablet PO levothyroxine 88 mcg tablet PO sennosides [senna] 8.6 mg tablet 17.2 mg PO BID trazodone 100 mg tablet 100 mg PO QPM Follow Up/Referrals: Stephy Stover PA-C [Primary Care Provider, Family Practice] Stand Alone Forms: [employer] Info Instructions
[2025-07-19 13:52] LABS: Hematocrit* 32.3 % (33.0-51.0); Hemoglobin* 10.1 gm/dL (12.0-16.0); Immature Granulocytes Abs Auto 0.01 K/uL (0.00-0.30); Immature Granulocytes Pct Auto 0.2 %; Lymphocytes Absolute Auto 1.48 K/uL (0.90-2.90); Mean Corpuscular HGB Conc 31 gm/dL (32-36); Mean Corpuscular Hemoglobin 28 pg (26-34); Mean Corpuscular Volume 91 fL (80-100); RDW Coefficient of Variation % 11.6 % (11.5-15.5); Red Blood Count* 3.56 m/uL (4.00-5.20); White Blood Count* 5.35 K/uL (4.50-11.00)
[2025-07-19 14:02] LABS: Slide Review Reflex No
[2025-07-19 14:04] LABS: Chloride* 100 mmol/L (96-114)
[2025-07-19 14:05] LABS: PCR FLU A Negative PCR FLU A (Negative); PCR FLU B Negative PCR FLU B (Negative); PCR RSV Negative PCR RSV (Negative); SARS PCR* Negative SARS-CoV-2 (Negative)
[2025-07-19 14:05] LABS: Potassium* 3.8 mmol/L (3.6-5.1); Sodium* 137 mmol/L (135-149)
[2025-07-19 14:08] LABS: Anion Gap 10 mEq/L (7-15); Blood Urea Nitrogen* 10 mg/dL (7-30); Calcium* 9.0 mg/dL (8.4-10.6); Carbon Dioxide* 27 mmol/L (20-32); Creatinine* 0.8 mg/dL (0.5-1.5); Est. Creatinine Clearance* 67.29; Estimated Glomerular Filt Rate 84 ml/min; Glucose* 90 mg/dL (60-115)
[2025-07-19 14:16] LABS: D Dimer Quantitative* 0.51 ug/ml (0.00-0.50)
[2025-07-19 14:21] LABS: NT Pro B Type NatriureticPept* 446 pg/mL (See Note)
[2025-07-19 14:51] LABS: TSH With Reflex to FT4* 1.080 uIU/mL (0.270-4.200)
== END 2025-07-19 15:20 | disposition home or self-care (01) ==
PROVIDERS: Emergency Provider Student in an Organized Health Care Education/Training Program; PCP Physician Assistant Medical
DX: R06.02 Shortness of breath (principal); R00.1 Bradycardia, unspecified
CPT/HCPCS: 36415; 71046; 80048; 83735; 83880; 84443; 84484; 85025; 85379; 87631; 93005; 99284; 99285